=== PATIENT | female | born 1985 | race Asian ===

== ENCOUNTER 2016-06-17 05:27 | Inpatient (IN) | payer OTHER ==
[2016-06-17] MEDS ORDERED: LIDOCAINE 1% (PRES FREE) 30 ML VIAL ONE (05:53)
[2016-06-17] MEDS ORDERED: OXYTOCIN 10 UNITS/ML VIAL ONE (05:53)
[2016-06-17] MEDS ORDERED: MINERAL OIL 25 ML BOT ONE (05:53)
[2016-06-17] MEDS ORDERED: LIDOCAINE Viscous 2% 15 ML UDCUP ONE (05:54)
[2016-06-17] MEDS ORDERED: PUMP TUBING ONE (05:54)
[2016-06-17] MEDS ORDERED: OXYTOCIN IN LR 0 ML IV ONE (05:54)
--- NOTE | 2016-06-17 06:19 | PCMAN ---
OB Admission Note - History : 2 Term: 1 : 0 Abortions (S&E): 0 Livin EDC:: 06/19/16 Gestational Age (weeks): 39 Days (#/7): 5 Admit Cervical Dilation:: 7 Admit Station:: -2 Admit Presentaton:: vertex Membrane Status: Bulging Contractions: Yes Contraction Frequency:: 2-4 Heart Rate:: 120 Status:: Category 1 EFW:: 7.5# Summary of Course:: Onset of care at 8 weeks, 11 week US consistent with LMP. Dx with GDM at 26 weeks and has had good glucose control. Had sudden increase in fundal height last week with US diagnosis of mild hydramnios. Scheduled for induction 06/18 but had spontaneous labor beginning this AM. - Labs Blood Type: AB (+) positive Hct/Hgb:: 14.2 Rubella Status: Immune GBS Status: Negative Other Labs:: 1 hr 189, 3 hr 79- [id number] - Physical Exam Psych/Mental Status: Mood/Affect Appropriate Neurological: Grossly Intact Lungs: Clear to Auscultation Bilaterally Cardiovascular: Regular Rate and Rhythm Genitourinary: Normal Female Genitalia Rectal Exam: Deferred Extremities: Full ROM Skin: Normal Color - Problems (1) Active labor at term Status: Acute Code: [id number] Assessment/Plan: P: Anticipate . (2) Gestational diabetes Status: Acute Code: O24.419 Assessment/Plan: P: No special care needed due to good control throughout 3rd trimester. Anticipate
[2016-06-17 06:49] VITALS: BMI 38.7
[2016-06-17] MEDS ORDERED: IBUPROFEN 800 MG TABLET ONE (09:36)
[2016-06-17] MEDS ORDERED: HYDROCODONE/ACETAMINOPHEN 5/325MG TABLET PO PRN (09:41)
[2016-06-17] MEDS ORDERED: DOCUSATE SODIUM 100 MG CAPSULE PO PRN (09:41)
[2016-06-17] MEDS ORDERED: DIPHTH,PERTUSS(ACELL),TET VAC 0.5 ML VIAL IM V ONE (09:41)
[2016-06-17] MEDS ORDERED: ACETAMINOPHEN 325 MG TABLET PO PRN (09:41)
[2016-06-17] MEDS ORDERED: CALCIUM CARBONATE 500 MG TAB.CHEW PO PRN (09:41)
[2016-06-17] MEDS ORDERED: BENZOCAINE/MENTHOL 60 APPLIC/BOT TP PRN (09:41)
[2016-06-17] MEDS ORDERED: LANOLIN 50 APPLIC/7G TUBE TP PRN (09:41)
[2016-06-17] MEDS: IBUPROFEN 800 MG TABLET PO SCH ×2 (09:45→17:32)
--- NOTE | 2016-06-17 10:07 | PCMDEL ---
Delivery Note - Labor 1st stage (hr/min):: 4 hours 43 min 2nd stage (hr/min):: 0 hours 08 min 3rd stage (hr/min):: 0 hours 07 min Total (hr/min):: 4 hours 58 min - Delivery Delivery (Date): 06/17/16 Delivery (Time): 08:51 Infant Gender: Male Weight: 7 lb 13 oz Length: 1 ft 8.5 in Presentation: Cephalic Position: OA Umbilical Cord: 3 Vessel Delayed Cord Clamping:: > 3 min 1 Minute Total: 8 5 Minute Total: 10 Placenta:: tien EBL:: 200 Perineum:: intact Suture:: none Anesthesia/Meds:: none Length ROM:: 2 hours 05 min Comments:: Arrived in active labor at term with hx of GDM- well controlled with diet and late onset of hydramnios. Was planning induction tomorrow AM. Normal progress of labor until strong urge to push. Anterior lip easily reduced and baby delivered with 2 loops of cord around neck-unwrapped after and baby handed to mother for skin to skin. Spontaneous delivery of [place] placenta, intact and complete. Cord clamped and cut after 5 min physiologic delay. Excellent bonding.
[2016-06-17 13:43] VITALS: BP 127/77
--- NOTE | 2016-06-17 15:31 | PDOC39B ---
Hospital Course: ADMIT DATE: 06/17/16 DISCHARGE DATE: 06/17/16 ADMISSION DIAGNOSES: Active Labor PROCEDURES: HISTORY OF PRESENT ILLNESS: 30 year old G2 T1 L1 at 39 weeks 5 days presenting with active labor. HOSPITAL COURSE: The patient progressed normally to complete and delivered a vigorous male , apgars 8-10. At approximately 4.5 hours of age, had dusky episode and was taken to nursery. After consultation, decision was made to transport baby to [facility]. Mother would like to accompany baby. Baby breastfed well prior to moving to nursery. Though soon after delivery, patient is stable and able to be discharged. - Physical Exam Vital Signs: Temp Pulse Resp BP Pulse Ox 97.5 F 107 16 127/77 06/17/16 13:00 06/17/16 13:00 06/17/16 13:00 06/17/16 13:00 General: Afebrile Psych/Mental Status: Mood/Affect Appropriate, Tearful Lungs: Clear to Auscultation Bilaterally Cardiovascular: Regular Rate and Rhythm Breast: Soft, Skin intact Fundus: Firm, Midline, Below Umbilicus Genitourinary: Normal Female Genitalia Lochia: Moderate Skin: Normal Color, Warm, Dry - Discharge Diagnosis (1) care and examination of lactating mother Status: Acute Assessment/Plan: A: Good latch established - Discharge Plan Condition: Stable Disposition: Home Additional Instructions: Midwifery 'After the ' handout given to patient.
== END 2016-06-17 17:45 | disposition home or self-care (01) | DRG 775 ==
LOC: FBCOUT 05:27 → FBC 05:27 → FBCOUT 05:45
PROVIDERS: ADMIT Licensed Practical Nurse; ATTEND Licensed Practical Nurse
PROC: 10E0XZZ Delivery of Products of Conception, External Approach (ICD-10-PCS; principal; 2016-06-17)
DX: O40.3XX0 Polyhydramnios, third trimester, not applicable or unspecified (principal); O24.420 Gestational diabetes mellitus in childbirth, diet controlled; O69.81X0 Labor and delivery complicated by cord around neck, without compression, not applicable or unspecified; Z3A.39 39 weeks gestation of pregnancy; Z37.0 Single live birth